=== PATIENT | female | born 1950 | race Caucasian/White ===

== ENCOUNTER → 2017-03-23 | Outpatient (CLI) | payer BC ==
[~2017-03-23] MED LIST: ACET-1256 PO; GABA1CAP5 PO; GLUCTAB7; MAGN250T3; MULT-612; OXYC-57 PO; POTA75TA; SYN100
--- NOTE | 2017-03-24 12:46 | MAMMOGRAPHY REPORT ---
BILATERAL DIGITAL SCREENING MAMMOGRAM TOMOSYNTHESIS WITH CAD: 03/23/2017 CLINICAL HISTORY: Routine screening. Patient has no complaints. TECHNIQUE: Breast tomosynthesis in addition to standard 2D mammography was performed. Current study was also evaluated with a Computer Aided Detection (CAD) system. COMPARISON: Comparison is made to exams dated: 03/19/2016 mammogram, 03/14/2015 mammogram, 03/09/2014 ma mmogram, 03/08/2013 mammogram, 02/25/2012 mammogram, and 02/13/2011 mammogram - [facility]. BREAST COMPOSITION: There are scattered areas of fibroglandular density in both breasts. There has been mild involutional changes compared to the most remote mammogram from 2007. FINDINGS: The parenchymal pattern is similar to prior exams. No developing mass, architectural dist ortion or cluster of suspicious microcalcifications is seen in either breast. IMPRESSION: ACR BI-RADS CATEGORY 2: BENIGN There is no mammographic evidence of malignancy. A 1 year screening mammogram is recommended. The pa tient will receive written notification of the results. Approximately 10% of breast cancers are not detected with mammography. A negative mammographic report should not delay biopsy if a clinically suggestive mass is present. Racquel Maldonado M.D. ay/:03/23/2017 16:34:07 Nurse Licensed Practical: Eileen KEITH(Mateo)([place])([place]), [facility] letter sent: Normal 1/2 BI-RADS Code: ACR BI-RADS Category 2: Benign
== END | disposition home or self-care (01) ==
LOC: C.MAMM 08:44
PROVIDERS: ATTEND Obstetrics & Gynecology
DX: Z12.31 Encounter for screening mammogram for malignant neoplasm of breast (principal)

== ENCOUNTER → 2017-07-20 | Outpatient (CLI) | payer BC | END | disposition home or self-care (01) | LOC: C.MAMM 13:45 | PROVIDERS: ATTEND Family Medicine | DX: Z13.820 Encounter for screening for osteoporosis (principal); M85.851 Other specified disorders of bone density and structure, right thigh; M85.852 Other specified disorders of bone density and structure, left thigh ==

== ENCOUNTER 2022-07-22 08:10 | Observation (INO) ==
--- NOTE | 2022-07-02 13:50 | PAT Medication Instructions ---
Medication Instructions Date of Service July 02, 2022 Home Medications antiarthritic combination no.2 900 mg tablet (glucosamine-chondroitin) 900 mg PO QAM potassium gluconate [potassium] 1 tab PO UD Alphalipoic Acid 1,200 mg PO QAM przzvxq-leeadcstr-vaxo tablet 1 tab PO QAM conjugated estrogens 0.625 mg/gram vaginal cream (Premarin) 0.625 mg vaginal UD cyclosporine 0.05 % eye drops in a dropperette (Restasis) 1 drp ophthalmic (eye) BID levothyroxine 100 mcg tablet 100 mcg PO QAM omega-3 fatty acids 2 cap PO QAM turmeric root extract 500 mg tablet 500 mg PO QAM vit C 250 mg-E 90 mg-zinc 40 mg-copper 1 ad-yirwph-rjtvko chew tablet (PreserVision AREDS-2) 1 tab PO QAM STOP taking 2 weeks before surgery (or as soon as possible if surgery is within 2 weeks) antiarthritic combination no.2 900 mg tablet (glucosamine-chondroitin) 900 mg PO QAM Alphalipoic Acid 1,200 mg PO QAM omega-3 fatty acids 2 cap PO QAM turmeric root extract 500 mg tablet 500 mg PO QAM vit C 250 mg-E 90 mg-zinc 40 mg-copper 1 lg-necwvx-gbbevu chew tablet (PreserVision AREDS-2) 1 tab PO QAM DO NOT take the morning of surgery potassium gluconate [potassium] 1 tab PO UD bmwbzjc-bihcxaqbi-trlo tablet 1 tab PO QAM conjugated estrogens 0.625 mg/gram vaginal cream (Premarin) 0.625 mg vaginal UD Take morning of surgery With a small sip of water, OTHERWISE NOTHING TO EAT OR DRINK AFTER MIDNIGHT: cyclosporine 0.05 % eye drops in a dropperette (Restasis) 1 drp ophthalmic (eye) BID levothyroxine 100 mcg tablet 100 mcg PO QAM Other Notes If you have any questions please call us at [phone] or [phone] or [phone] or [phone]
--- NOTE | 2022-07-11 12:45 | Anesthesiology Consultation ---
Date of Service July 11, 2022 Assessment & Plan (1) Encounter for pre-operative examination: - COVID screening: Per assessment on 07/11: No known COVID-19 positive contacts or current COVID-19 related symptoms. Travel screen negative. Patient vaccinated. At surgeon discretion if preop Covid testing being done. - Outpatient joint assessment: Pt currently scheduled for inpatient pathway. If surgeon requests review for outpatient joint pathway, patient is acceptable candidate for outpatient joint program from anesthesia standpoint pending surgeon's office assessment of pt motivation/strong home support/completion of same day joint program preop requirements. Chart Review Chart Review: Acceptable Risk for Surgery and Patient seen in Pre Admission Testing Teaching & Discussion Pre-Anesthesia Teaching/Discussion Notes: Instructed NPO after midnight before surgery,except medications with 15 cc of water. Medication instructions provided according to the PAT guidelines. History Surgery Operation Date: 07/22/22 07:00 Proposed Procedures p Right Total Knee Arthroplasty - Kenyon Nix MD Height/Weight Height: 5 ft 1 in Weight: 66.6 kg Allergies Allergy/AdvReac Type Severity Reaction Status Date / Time latex Allergy Mild Rash Verified 07/08/22 11:35 Penicillins Allergy Mild Hives Verified 07/08/22 11:35 melon Allergy Hives Verified 07/11/22 13:16 tree nut Allergy Hives Verified 07/08/22 11:35 garlic AdvReac Unknown GI problems Verified 07/08/22 11:35 Medications Home Medications Medication Instructions Recorded Confirmed Last Taken antiarthritic combination no.2 900 900 mg PO QAM 07/19/19 07/01/22 Unknown mg tablet (glucosamine-chondroitin) potassium gluconate [potassium] 1 tab PO UD 07/19/19 07/01/22 Unknown Alphalipoic Acid 1,200 mg PO QAM 07/01/22 07/01/22 Unknown lgdnwsu-lxufwqdti-ohhe tablet 1 tab PO QAM 07/01/22 07/01/22 Unknown conjugated estrogens 0.625 mg/gram 0.625 mg vaginal UD 07/01/22 07/01/22 Unknown vaginal cream (Premarin) cyclosporine 0.05 % eye drops in a 1 drp ophthalmic (eye) BID 07/01/22 07/01/22 Unknown dropperette (Restasis) levothyroxine 100 mcg tablet 100 mcg PO QAM 07/01/22 07/01/22 Unknown omega-3 fatty acids 2 cap PO QAM 07/01/22 07/01/22 Unknown turmeric root extract 500 mg tablet 500 mg PO QAM 07/01/22 07/01/22 Unknown vit C 250 mg-E 90 mg-zinc 40 1 tab PO QAM 07/01/22 07/01/22 Unknown mg-copper 1 pe-ebrvqv-pdqxyq chew tablet (PreserVision AREDS-2) Past Medical History Medical History History of blood transfusion Post-op 40 years ago Hx of endometriosis Hypothyroidism Postmenopausal hormone replacement therapy Exercise / Class Metabolic Activity II 4-5 Yardwork/Stairs/Walk up hill Past Family History Family History Aunt Breast cancer Mother Diabetes Father Parkinson disease Past Surgical History Surgical History History of back surgery Hx of colonoscopy Hx of exploratory laparotomy Multiple surgeries several years ago (r/t endometriosis/fibroids) Hx of sinus surgery Deviated septum repair S/P appendectomy S/P arthroscopic knee surgery Right S/P hysterectomy Past Anesthesia History No Hx of Anesthesia Complications and No Family Hx of Anesthesia Complications History of PONV No Hx of PONV and Hx of Motion Sickness Social History Smoking Status: Never smoker Do You Dip or Chew Tobacco: No Hx Alcohol Use: Yes Alcohol type: wine alcohol intake frequency: holidays/special occasions only Hx Substance Use: No substance use type: does not use Review of Systems Patient denies chest pain, shortness of breath, dyspnea on exertion, fever, chills, cough, wheezing, palpitations. Physical Exam Vital Signs VITALS BP 127/72 P 84 TEMP 98.3 SP02 97%RA RESP 18 PHYSICAL Full cervical extension range of motion. Full TMJ range of motion. TMD 3 finger breaths Mallampati Score 3 Dentition: lower partial Lungs: clear throughout to auscultation Cardiac: regular rate and rhythm, no murmurs noted Spine: normal Carotid arteries: negative bruit Extremities: no edema Lab Results Anesthesia Preop Results Results Anesthesia Widget: WBC 6.28 K/ul (4.8-10.8) 07/11/22 Hgb 13.8 g/dl (12.0-16.0) 07/11/22 Hct 41.4 % (34.1-44.9) 07/11/22 Plt 448 K/uL (130-400) H 07/11/22 PT 10.2 Seconds (9.0-12.0) 07/11/22 PTT 26.5 Seconds (21.0-31.0) 07/11/22 INR 1.0 (0.9-1.1) 07/11/22 Blood Type O Positive 07/11/22 Antibody Screen NEGATIVE 07/11/22 Testing Laboratory Results 07/07/22 SODIUM 139 POTASSIUM 4.0 CHLORIDE 106 CO2 26 BUN 17 CREATININE 0.49 GLUCOSE 93 TSH 1.49 Electrocardiogram Date: 07/11/22 NSR at 84bpm. Chest X-Ray Date: 07/11/22 Findings: + NAD COVID-19 Risk Screen Screening Information COVID-19 Screen Date: 07/11/22 Exposure 21 Days Family/Household +COVID Last 21 Days: No Exposure 10 Days Any COVID Exposure Last 10 Days: No Symptoms Last 10 Days Experienced COVID Sx Last 10 Days: No + COVID 0-90 Days COVID + in Last 0-90 Days: No
[~2022-07-22 08:10] MED LIST changes: -ACET-1256 PO; +ACETAMINOPHEN 500 MG TAB PO SCH; +ALLERGY Noted to ORDERED Medication SCH; +BUPIVACAINE 0.25% 30 ML VIAL ONE; +BUPIVACAINE 0.5 % 5 MG/1 ML PF 10ML VIAL ONE; +BUPIVACAINE LIPOSOME/PF 266 MG, BUPIVACAINE/EPINEPHRINE 50 ML, SODIUM CHLORIDE 0.9% 30 ... INFIL SCH; +CeleBREX 200 MG CAP PO SCH; +DEXAMETHASONE SOD INJ 4 MG/ML VIAL ONE; +EPINEPHrine INJ 1 MG/ML AMP ONE; +FAMOTIDINE 20 MG TAB PO SCH; -GABA1CAP5 PO; -GLUCTAB7; +LR 500ML BOLUS, THEN 15ML/HR IV SCH; +LR 60ML/HR IV SCH; -MAGN250T3; +METOCLOPRAMIDE HCL 10 MG TABLET PO SCH; -MULT-612; -OXYC-57 PO; -POTA75TA; -SYN100; +TRANEXAMIC ACID 1,000 MG **IV Intra-op IV SCH; +ceFAZolin 2000MG 2,000 MG/15 ML SYR IV SCH
--- NOTE | 2022-07-22 08:42 | History & Physical Bridge Note ---
Date of Service July 22, 2022 History & Physical Bridge Note I have examined the patient, reviewed the History & Physical and in the interval since the performance of the History & Physical I have noted the following changes of clinical significance: no changes noted
[2022-07-22] MEDS ORDERED: Nursing to Pharmacy Communication SCH (08:45)
[2022-07-22] MEDS ORDERED: MIDAZOLAM HCL 1 MG/ML 2ML VIAL ONE (09:07)
[2022-07-22] MEDS ORDERED: ATROPINE SULFATE 0.1 MG/ML 10ML SYR IV PRN (09:49)
[2022-07-22] MEDS ORDERED: PROMETHAZINE HCL 6.25 MG in SODIUM CHLORIDE 0.9% 50 ML IV PRN (09:49)
[2022-07-22] MEDS ORDERED: ePHEDrine sulfate 50 MG/ML AMP IV PRN (09:49)
[2022-07-22] MEDS ORDERED: ONDANSETRON INJ 2 MG/ML 2 ML VIAL IV PRN ×2 (09:49→14:01)
[2022-07-22] MEDS ORDERED: fentaNYL citrate 100 MCG/2 ML VIAL IV PRN (09:49)
[2022-07-22] MEDS ORDERED: BUPIVACAINE LIPOSOME 1.3% 266 MG/20 ML VIAL ONE (10:37)
[2022-07-22] MEDS ORDERED: BUPIVACAINE/EPINEPHRINE 0.25% 1:200,000 30 ML VIAL ONE (10:37)
[2022-07-22] MEDS ORDERED: SODIUM CHLORIDE 0.9% PF 50 ML VIAL ONE (10:37)
[2022-07-22] MEDS ORDERED: PROPOFOL IV EMULSION 10 MG/ML 20 ML VIAL IV ONE (11:01)
--- NOTE | 2022-07-22 12:42 | Operative Report ---
PG Post Operative Report Pre & Post Diagnosis Operation Date: 07/22/22 10:40 Pre-Op Diagnosis: Right Knee Degenerative Joint Disease Post-Op Diagnosis: Right Knee Degenerative Joint Disease I identified the patient and participated in the time-out.: Yes Procedure Operation Date: 07/22/22 10:40 Actual Procedures p Right Total Knee Arthroplasty(Right) - Kenyon Nix MD Surgeon Kenyon Nix MD Outside Installer Apprentice Braxton Steward PA-C Estimated Blood Loss 50 Findings Consistent with Post-Op Diagnosis Findings revealed advanced right knee DJD with grade 4 erix-yu-ppea disease primarily lateral compartment. She had some spotty grade 4 changes elsewhere. Slight valgus alignment to her knee. Small to moderate sized knee effusion. Fluids 700 cc Specimens Right knee sent for pathology Drains None Anesthesia Type Spinal MAC Complications none Disposition Accompanied Patient To Recovery: No Indications Patient is a 72-year-old female long-term patient of our practice is had a long history of bilateral knee pain discomfort right side greater than left. As she been through extensive conservative treatment became less successful over time. She has a history of right knee arthroscopy done elsewhere about 20 years ago. X-rays show progressive knee arthritis particular in the lateral compartment. She failed conservative measures and elected proceed with total knee arthroplasty. Description of Procedure Operative implants consist of: 1. Biomet Vanguard size 57.5 right posterior stabilized femoral component. 2. Size 63 tibial tray. 3. 10 mm posterior stabilized polyethylene insert. 4. 25 x 8 all Paller patella. The patient was taken the operating, identified, and placed on the operating table supine position but all contact areas were appropriately padded. IV antibiotics arrived by anesthesia team. Spinal anesthetic and abductor canal block had provided in the holding area. Burnett catheter was placed in sterile fashion. Right Tetrick was then placed in the right lower extremities then prepped and draped in usual sterile fashion. The right leg was elevated exsanguinated with use of an Esmarch in terms playset 300 mmHg. An anterior approach to the right knee was then performed to longitudinal incision centered over the patella. Sharp dissection Through subcutaneous tissue down the extensor mechanism. A medial parapatellar arthrotomy incision was made. Some subperiosteal dissection was carried out medially. The fat pad was resected from Neath patella tendon. Lateral patellofemoral ligament was released. Patella subluxated laterally and the knee was flexed. The osteophyte taken off distal femur. The ACL and PCL then rele ased from the distal femur the tibia subluxated anteriorly. The external tibial alignment jig was then placed in the interface of the tibia and adjusted 12 mm medially. Proximal tibial cut was made to remove about 3 to 4 mm of bone from the medial side. Tibia sized to a size 63. Attention drawn the femur. The distal femur examined the sharp drop with intramedullary canal was suction. A right 5 degree valgus cutting guide was placed. Distal femoral cutting block was pinned in place. Distal femoral cut was made to take an additional 3 mm bone off distal femur. I then brought the knee in extension I did not feel Marshal crusting of the posterior lateral capsule and the IT band taking great care to protect the peroneal nerve at all times. The knee was then flexed. The knee was sized to a size 57 and half. The AP cutting block was pinned parallel to the epicondylar axis which was 4 degrees of external rotation. The anterior cut, anterior chamfer, posterior cut, posterior chamfer cuts were made through the box cutting guide was placed in just slight lateral box cut was made. The knee was flexed. The remnants of the medial and lateral menisci were excised. The osteophytes were taken off the posterior aspect the femur. A trial femoral component was placed for the tibial tray was pinned in maximum external rotation and the drill and stem punch were used to create defect in the proximal tibia for the tibial tray. The knee was then trialed and the 10 mm insert fit most appropriately. Attention drawn the patella. The patella was cleaned of all soft tissues. Patella thickness measured 18 mm in thickness and was cut down to 12. It was sized to a size 25 patella. The lug holes for the 25 patella were placed. The lateral osteophyte was removed. Patella button was placed. The knee was taken through range of motion patella tracked nicely with no thumbs test. Attention drawn to placing permanent components. Nupathe all trial components were removed. A bone plug was placed into the distal femur limit blood loss. Double batch Palacos G cement was mixed. A Biomet Vanguard size 57.5 right posterior stabilized femoral component, size 63 tibial tray, a 10 mm posterior stabilized polyethylene insert, and a 25 x 8 all Paller patella were then cemented in place. Knee was brought out into full extension total cement hardened. Final cement check was then performed. The pericapsular tissues were injected with total 100 cc of combination of 20 cc of Exparel, 30 cc normal saline, 50 cc of quarter percent Marcaine with epinephrine. Patient did receive 1 g tranexamic acid. The tourniquet was let down for turn time 55 minutes. Hemostasis reduced electrocautery. The extensor mechanism was then closed with combination 1 PDS suture and 1 Vicryl suture in nnsmbb-zy-idsad fashion. Extensor mechanism checked found to be intact the subcutaneous tissue then closed with 2 Dexon suture in a buried interrupted fashion. Skin was closed skin carolin. Leg was then cleaned and dried a sterile dressing was Xeroform, 4 x 4's, sterile cast padding, Minh bandage were applied. Patient then transferred to the recovery room in stable condition. Patient tolerated procedure well and there were no complications. Braxton Steward, my physician assistant store manager trainee, was present for the entire procedure. His assistance was essential and required for appropriate patient positioning, prepping and draping, surgical exposure, performing the technical details of the operation, placement the implants, closure of the wound, and placement of the sterile bandage. I attest to the content of the Intraoperative Record and any orders documented therein. Any exceptions are noted below.
--- NOTE | 2022-07-22 13:00 | XRay Report ---
XR knee RT 1 or 2V routine HISTORY: 72 years-old Female Surgical Post Op right knee total joint arthroplasty COMPARISON: Knee radiographs 07/11/2022 TECHNIQUE: 2 views of the right knee FINDINGS: Total joint arthroplasty with patellar resurfacing. Anterior midline skin carolin are noted along wit h expected postoperative soft tissue swelling with deep tissue air. No acute fracture, alignment or u nexpected opaque foreign body. IMPRESSION: Total joint arthroplasty with expected postoperative changes. ACT 112: Negative or not required by law. The above report was generated using voice recognition software. It may contain grammatical, syntax o r spelling errors. Electronically signed by: Liam Lawson M.D. 07/22/2022 12:59 PM
[2022-07-22] MEDS ORDERED: NON-FORMULARY MEDICATION (Potassium Gluconate 1 TAB) PO SCH (14:01)
[2022-07-22] MEDS ORDERED: ALUMINUM/MAGNESIUM SUSP 30 ML UDC PO PRN (14:01)
[2022-07-22] MEDS ORDERED: METOCLOPRAMIDE HCL INJ 5 MG/ML 2 ML VIAL IV PRN (14:01)
[2022-07-22] MEDS ORDERED: NALOXONE HCL 0.4 MG/1 ML VIAL/CARP IV PRN (14:01)
[2022-07-22] MEDS ORDERED: HYDROmorphone INJ 0.5 MG/0.5 ML SYR IV PRN (14:01)
[2022-07-22] MEDS ORDERED: PREMARIN VAG CRM 14 APPLN/30 GM TUBE PV SCH (14:01)
[2022-07-22] MEDS ORDERED: MAGNESIUM HYDROXIDE SUSP 30 ML UDC PO PRN (14:01)
[2022-07-22] MEDS ORDERED: bisacodyL 10 MG SUPP PR PRN (14:01)
[2022-07-22] MEDS: SODIUM CHLORIDE 0.9% 1000ML 1,000 ML IV SCH ×2 (15:11→22:29)
[2022-07-22] MEDS: KETOROLAC TROMETHAMINE 15 MG/ML VIAL IV SCH ×2 (15:26→20:50)
[2022-07-22] MEDS: ACETAMINOPHEN 500 MG TAB PO SCH ×2 (15:28→21:26)
--- NOTE | 2022-07-22 16:22 | Anesthesiology Progress Note ---
Date of Service July 22, 2022 Anesthesia Post Procedure Vital Signs Vital Signs: Temp Pulse Pulse Resp BP BP Pulse Ox 07/22/22 15:50 97.5 F L 84 16 150/87 H 96 07/22/22 14:59 97.5 F L 81 18 144/89 H 100 07/22/22 14:29 97.5 F L 88 18 154/92 H 97 07/22/22 14:04 97.5 F L 96 H 16 118/60 93 07/22/22 13:35 81 14 138/80 94 07/22/22 13:25 97.3 F L 79 14 137/85 96 07/22/22 13:15 88 13 132/78 95 07/22/22 13:05 85 13 128/78 94 07/22/22 12:55 90 14 128/75 97 07/22/22 12:45 91 H 11 L 127/74 95 07/22/22 12:36 97.0 F L 95 H 14 122/70 97 07/22/22 08:46 98.2 F 82 20 187/97 H 97 O2 Del Method 07/22/22 15:50 Room Air 07/22/22 14:59 Room Air 07/22/22 14:29 Room Air 07/22/22 14:04 Room Air 07/22/22 13:35 Room Air 07/22/22 13:25 Room Air 07/22/22 13:15 Room Air 07/22/22 13:05 Room Air 07/22/22 12:55 Room Air 07/22/22 12:45 Room Air 07/22/22 12:36 Room Air 07/22/22 08:46 Room Air Transfer of Care Handoff Completed per policy Notes Mental Status: alert / awake / arousable and participated in evaluation Patient Amnestic to Procedure: Yes Nausea / Vomiting: adequately controlled Pain: adequately controlled Airway Patency, RR, SpO2: stable & adequate BP & HR: stable & adequate Hydration State: stable & adequate Anesthetic Complications: no major complications apparent and Pt Satisfied with anesthetic care
[2022-07-22] MEDS: ASCORBIC ACID 500 MG TAB PO SCH (17:57)
[2022-07-22] MEDS: ceFAZolin 1000MG 1,000 MG/7.5 ML SYR IV SCH (18:00)
[2022-07-22] MEDS: traMADol HCL 50 MG TABLET PO PRN (18:28)
[2022-07-22] MEDS ORDERED: TRANEXAMIC ACID / 0.7% NACL 1,000 MG/100 ML BAG IV SCH (18:45)
[2022-07-22] MEDS: DOCUSATE SODIUM 100 MG CAP PO SCH (20:50)
[2022-07-22] MEDS: ASPIRIN 81 MG ECTAB PO SCH (20:50)
[2022-07-22] MEDS ORDERED: SENNA 8.6 MG TAB PO SCH (21:00)
[2022-07-22] MEDS ORDERED: cycloSPORINE (RESTASIS) OP SCH (21:00)
[2022-07-23] MEDS: KETOROLAC TROMETHAMINE 15 MG/ML VIAL IV SCH ×2 (01:54→08:39)
[2022-07-23] MEDS: ceFAZolin 1000MG 1,000 MG/7.5 ML SYR IV SCH (01:55)
[2022-07-23] MEDS: ACETAMINOPHEN 500 MG TAB PO SCH (05:39)
[2022-07-23] MEDS: traMADol HCL 50 MG TABLET PO PRN ×2 (05:41→11:41)
[2022-07-23 06:31] LABS: Hematocrit (blood only) 32.3 % (34.1-44.9); Hemoglobin 11.2 g/dl (12.0-16.0); Mean Corpuscular Hemoglobin 30.4 pg (25.0-34.0); Mean Corpuscular Hgb Conc 34.7 g/dL (32.0-36.0); Mean Corpuscular Volume 87.8 fL (80.0-100.0); Mean Platelet Volume 8.9 fL (9.4-12.3); Platelet Count 393 K/uL (130-400); RDW Standard Deviation 41.8 fL (36.4-46.3); Red Blood Count 3.68 M/uL (3.93-5.22); White Blood Count 11.99 K/ul (4.8-10.8)
[2022-07-23 06:56] LABS: BUN Creatinine Ratio 26.9 (10-20); Calcium 9.3 mg/dl (8.5-10.1); Creatinine Clr Calc Pharmacy 87.9 ml/min; Est GFR (African American) 112.2 ml/min; Est GFR (Non-African American) 96.8 ml/min; Potassium 3.8 mmol/L (3.5-5.1)
[2022-07-23] MEDS ORDERED: dexAMETHasone 10 MG in SYRINGE 0 ML IV SCH (08:00)
[2022-07-23] MEDS: ASCORBIC ACID 500 MG TAB PO SCH (08:41)
[2022-07-23] MEDS: DOCUSATE SODIUM 100 MG CAP PO SCH (08:42)
[2022-07-23] MEDS: ASPIRIN 81 MG ECTAB PO SCH (08:42)
[2022-07-23] MEDS ORDERED: MULTIVITAMIN TAB PO SCH (09:00)
[2022-07-23] MEDS ORDERED: NON-FORMULARY MEDICATION (Calcium-Magnesium-Zinc Tablet) PO SCH (09:00)
[2022-07-23] MEDS ORDERED: GLUCOSAMINE SULFATE 500 MG CAP PO SCH (09:00)
[2022-07-23] MEDS ORDERED: ALPHALIPOIC ACID PO SCH (09:00)
[2022-07-23] MEDS ORDERED: NON-FORMULARY MEDICATION (Vit C,E-Zn-Coppr-Lutein-Zeaxan [Preservision Areds-2] 250-90-40- PO SCH (09:00)
[2022-07-23] MEDS ORDERED: LEVOTHYROXINE SODIUM 100 MCG TABLET PO SCH (09:00)
[2022-07-23] MEDS ORDERED: OMEGA-3 (PURIFIED FISH OIL) 1 GM CAP PO SCH (09:00)
--- NOTE | 2022-07-23 11:59 | Progress Notes ---
DATE OF SERVICE: 07/23/2022. SUBJECTIVE: A 72-year-old female, now postoperative day 1 from knee replacement. She is doing pretty well. Pain has been controlled. Therapy went well. She is hoping to go home. OBJECTIVE: VITAL SIGNS: Temperature is 36.4. Vital signs are stable. PHYSICAL EXAMINATION: GENERAL: Shows a pleasant, elderly female. She is sitting up in bed and looks quite comfortable. LUNGS: Clear to auscultation. HEART: Regular rate and rhythm. ABDOMEN: Soft, nontender, nondistended. EXTREMITIES: Grossly neurovascularly intact except as follows. Examination of the right leg reveals the leg to be well aligned. Dressing is clean, dry and intact. She can dorsiflex and plantarflex her foot appropriately. She is neurologically intact. LABORATORY DATA: Hemoglobin is 11.2. Hematocrit 32.3. Electrolytes are stable. ASSESSMENT: A 72-year-old female postoperative day 1 from a left knee replacement, doing pretty well . Pain is controlled. She is neurologically intact. PLAN: 1. DVT prophylaxis includes thigh-high TEDs, SCDs, and aspirin twice a day. 2. PT, OT, weightbear as tolerated. Left total knee protocol. 3. Pain control, doing okay with current pain regimen. 4. Disposition: Plan to discharge to home. She is going to outpatient therapy as there is no home health that will access her area. Job ID: [id number]
--- NOTE | 2022-07-31 07:46 | Discharge Summary ---
Date of Service July 31, 2022 Discharge Data Procedures Performed Operation Date: 07/22/22 10:40 Actual Procedures p Right Total Knee Arthroplasty(Right) - Kenyon Nix MD Hospital Course (1) Status post total right knee replacement: This is a 72 year old patient admitted on 07/22/22 and underwent total knee arthroplasty. She tolerated the procedure well and there were no complications. Transferred to the PACU post op and later to the orthopedic floor for further care. She was given ancef for antibiotic prophylaxis. She was also given KASHMIR stockings, SCDs, and aspirin for DVT prophylaxis. Hemoglobin, hematocrit, and vital signs were monitored during her hospital stay and remained stable. Did not require any blood transfusions. There were no complications during her hospital stay. By post op day #1 the patient was tolerating a regular diet, pain was reasonably controlled with oral pain medicine, and he was participating in physical therapy. On post op day #1 the patient was discharged home and set up with home health care. She was given printed discharge instructions including prescriptions for extra strength tylenol, aspirin, toradol, senokot, and tramadol. Continue physical therapy, weight bearing as tolerated. Continue KASHMIR stockings. Follow up approximately 2 weeks post op or sooner if there are problems or concerns. Coding Level of Care Code None Diagnoses Status post total right knee replacement Z96.651
== END 2022-07-23 13:17 | disposition home or self-care (01) ==
LOC: 3N 08:10 → ASU 08:10
DX: Z91.040 Latex allergy status; Z79.82 Long term (current) use of aspirin; Z88.0 Allergy status to penicillin; Z79.899 Other long term (current) drug therapy; M17.11 Unilateral primary osteoarthritis, right knee